=== PATIENT | male | born 1975 | race Caucasian/White ===

== ENCOUNTER 2017-09-10 20:49 | Emergency (ER) | payer SELFPAY ==
[~2017-09-10] VITALS: Ht 172.7 cm; Wt 90.7 kg
[~2017-09-10 20:49] MED LIST: AMLO5; CEPH500 PO; CLON.1TP; CLON.3; Coumadin4 MG PO; Coumadin5 MG PO; ENAL2.5; HYDACE5 PO; Keflex500 MG PO; MYCO250; MYCO250 PO; Norco 5-325 Ta1 EACH PO; PRED5; PROGRAF PO; PROM25 PO; TACR1; WARF1 PO
== END 2017-09-10 22:55 | disposition home or self-care (01) ==
LOC: ER 20:49
DX: R07.89 Other chest pain (principal); F17.200 Nicotine dependence, unspecified, uncomplicated; Z88.0 Allergy status to penicillin
CPT/HCPCS: 71046; 93005; 93010; 99283

== ENCOUNTER 2017-09-19 23:27 | Emergency (ER) | payer SELFPAY ==
[~2017-09-19] VITALS: Ht 172.7 cm; Wt 90.7 kg
== END 2017-09-20 01:15 | disposition home or self-care (01) ==
LOC: ER 23:27
DX: S82.832A Other fracture of upper and lower end of left fibula, initial encounter for closed fracture (principal); S93.401A Sprain of unspecified ligament of right ankle, initial encounter; W22.8XXA Striking against or struck by other objects, initial encounter; Z88.0 Allergy status to penicillin; Z79.899 Other long term (current) drug therapy; F17.200 Nicotine dependence, unspecified, uncomplicated
CPT/HCPCS: 73610; 99283

== ENCOUNTER 2017-12-14 19:22 | Emergency (ER) | payer SELFPAY ==
[~2017-12-14] VITALS: Ht 172.7 cm; Wt 83.9 kg
== END 2017-12-14 21:14 | disposition home or self-care (01) ==
LOC: ER 19:22
DX: R10.32 Left lower quadrant pain (principal); F17.200 Nicotine dependence, unspecified, uncomplicated; Z88.0 Allergy status to penicillin
CPT/HCPCS: 99282

== ENCOUNTER 2019-03-05 11:47 | Emergency (ER) | payer SELFPAY ==
[~2019-03-05] VITALS: Ht 172.7 cm; Wt 90.7 kg
[2019-03-05 12:25] LABS: BASOPHILS ABSOLUTE AUTO 0.05 K/mm3 (0.00-0.23); BASOPHILS PERCENT AUTO 1 % (0-2); EOSINOPHILS ABSOLUTE AUTO 0.23 K/mm3 (0.00-0.68); EOSINOPHILS PERCENT AUTO 2 % (0-6); Hematocrit 49.8 % (37.0-53.0); Hemoglobin 17.3 g/dL (13.5-17.5); IMMATURE GRAN ABSOLUTE AUTO 0.04 K/mm3 (0.00-0.10); IMMATURE GRAN PERCENT AUTO 0 % (0-1); LYMPHOCYTES ABSOLUTE AUTO 2.19 K/mm3 (0.84-5.20); LYMPHOCYTES PERCENT AUTO 21 % (21-46); MONOCYTES ABSOLUTE AUTO 0.76 K/mm3 (0.16-1.47); MONOCYTES PERCENT AUTO 7 % (4-13); Mean Corpuscular HGB 29.4 pg (26.0-34.0); Mean Corpuscular HGB Conc 34.7 g/dL (31.5-36.5); Mean Corpuscular Volume 85 fL (80-100); Mean Platelet Volume 10.8 fL (9.1-12.4); NEUTROPHILS ABSOLUTE AUTO 7.02 K/mm3 (1.96-9.15); NEUTROPHILS PERCENT AUTO 68 % (41-73); Platelet Count 265 K/mm3 (150-400); RDW Coefficient Variation 12.3 % (11.7-14.2); RDW Standard Deviation 37.4 fL (35.1-46.3); Red Blood Cell Count 5.88 M/mm3 (4.30-5.90); White Blood Cell Count 10.29 K/mm3 (4.00-11.30)
[2019-03-05 12:34] LABS: Source, Urine Clean Catch
[2019-03-05 12:38] LABS: Bilirubin, Urine Neg (Neg); Blood, Urine Neg (Neg); Glucose Qualitative, Urine 4+ (Neg); Ketones, Urine 2+ (Neg); Leukocyte Esterase, Urine Neg (Neg); Nitrite, Urine Neg (Neg); Protein, Urine Neg (Neg); Urobilinogen, Urine NORM (Normal)
[2019-03-05 12:45] LABS: Appearance, Urine Clear (Clear); Color, Urine Yellow (P-Yellow)
[2019-03-05 12:49] LABS: Albumin, Blood 3.8 g/dL (3.4-5.0); Albumin/Globulin Ratio 0.8 (0.8-1.8); Beta-hydroxybutyrate 8.9 mg/dL (0.2-2.8); Bilirubin, Total 0.9 mg/dL (0.1-1.0); Bun/Creatinine Ratio 19.6 (12.0-20.0); Calcium, Blood 9.7 mg/dL (8.5-10.1); Creatinine, Blood 1.43 mg/dL (0.60-1.20); Globulin, Blood 4.7 g/dL (2.2-4.0); Potassium, Blood 4.4 mmol/L (3.5-5.5); Total Protein, Blood 8.5 g/dL (6.4-8.2)
[2019-03-05] MEDS ORDERED: METF500 PO (15:11)
== END 2019-03-05 15:59 | disposition home or self-care (01) ==
LOC: ER 11:47
PROVIDERS: Emergency Medicine
DX: E11.65 Type 2 diabetes mellitus with hyperglycemia (principal); Z88.0 Allergy status to penicillin; Z87.891 Personal history of nicotine dependence
CPT/HCPCS: 36415; 80053; 81003; 82010; 82947; 83036; 85025; 96360; 99283-25; J7030

== ENCOUNTER 2023-02-16 20:15 | Emergency (ER) | payer OTHER ==
[~2023-02-16] VITALS: Ht 172.7 cm; Wt 81.7 kg
[~2023-02-16 20:15] MED LIST changes: +METF500 PO
[2023-02-16 20:42] LABS: Base Excess Venous 1.1 mmol/L; Bicarbonate Venous 24.1 mmol/L (24.0-30.0); PCO2 Venous 43.8 mmHg (38-42); pH Blood Venous 7.38 (7.34-7.37)
[2023-02-16 21:00] LABS: BASOPHILS ABSOLUTE AUTO 0.06 K/mm3 (0.00-0.23); BASOPHILS PERCENT AUTO 1 % (0-2); EOSINOPHILS ABSOLUTE AUTO 0.25 K/mm3 (0.00-0.68); EOSINOPHILS PERCENT AUTO 2 % (0-6); Hematocrit 46.1 % (37.0-53.0); IMMATURE GRAN ABSOLUTE AUTO 0.05 K/mm3 (0.00-0.10); IMMATURE GRAN PERCENT AUTO 1 % (0-1); LYMPHOCYTES ABSOLUTE AUTO 2.51 K/mm3 (0.84-5.20); LYMPHOCYTES PERCENT AUTO 24 % (21-46); MONOCYTES ABSOLUTE AUTO 0.82 K/mm3 (0.16-1.47); MONOCYTES PERCENT AUTO 8 % (4-13); Mean Corpuscular HGB 28.4 pg (26.0-34.0); Mean Corpuscular HGB Conc 34.7 g/dL (31.5-36.5); Mean Corpuscular Volume 82 fL (80-100); Mean Platelet Volume 10.7 fL (9.1-12.4); NEUTROPHILS ABSOLUTE AUTO 6.63 K/mm3 (1.96-9.15); NEUTROPHILS PERCENT AUTO 64 % (41-73); Platelet Count 311 K/mm3 (150-400); RDW Coefficient Variation 12.8 % (11.7-14.2); RDW Standard Deviation 37.6 fL (35.1-46.3); Red Blood Cell Count 5.64 M/mm3 (4.30-5.90); White Blood Cell Count 10.32 K/mm3 (4.00-11.30)
[2023-02-16 21:03] LABS: Source, Urine Clean Catch
[2023-02-16 21:10] LABS: Appearance, Urine Clear (Clear); Bilirubin, Urine Neg (Neg); Blood, Urine Neg (Neg); Color, Urine Yellow (P-Yellow); Glucose Qualitative, Urine 4+ (Neg); Ketones, Urine Neg (Neg); Leukocyte Esterase, Urine Neg (Neg); Nitrite, Urine Neg (Neg); Protein, Urine Neg (Neg); Specific Gravity, Urine 1.015 (1.003-1.022); Urobilinogen, Urine NORM (Normal)
[2023-02-16 21:17] LABS: Albumin, Blood 3.9 g/dL (3.4-5.0); Albumin/Globulin Ratio 0.9 (0.8-1.8); Beta-hydroxybutyrate 2.4 mg/dL (0.2-2.8); Bilirubin, Total 0.6 mg/dL (0.1-1.0); Calcium, Blood 9.7 mg/dL (8.5-10.1); Creatinine, Blood 1.19 mg/dL (0.60-1.20); Globulin, Blood 4.5 g/dL (2.2-4.0); Potassium, Blood 4.2 mmol/L (3.5-5.5); Total Protein, Blood 8.4 g/dL (6.4-8.2)
[2023-02-17 01:15] VITALS: BP 126/99
== END 2023-02-17 01:31 | disposition home or self-care (01) ==
LOC: ER 20:15
PROVIDERS: Student in an Organized Health Care Education/Training Program
DX: E11.65 Type 2 diabetes mellitus with hyperglycemia (principal); Z88.0 Allergy status to penicillin; Z79.899 Other long term (current) drug therapy; Z79.84 Long term (current) use of oral hypoglycemic drugs; Z87.891 Personal history of nicotine dependence
CPT/HCPCS: 80053; 81003; 82010; 82803; 83690; 85025; 93005; 93010; 96360; 99284-25; J7030

== ENCOUNTER 2024-12-14 04:12 | Observation (INO) | payer OTHER ==
[~2024-12-14] VITALS: Ht 172.7 cm; Wt 80.0 kg
[2024-12-14 04:46] LABS: Source, Urine Clean Catch
[2024-12-14 04:46] LABS: pH Blood Venous 7.32 (7.34-7.37)
[2024-12-14 04:52] LABS: BASOPHILS ABSOLUTE AUTO 0.01 K/mm3 (0.00-0.23); BASOPHILS PERCENT AUTO 0 % (0-2); EOSINOPHILS ABSOLUTE AUTO 0.01 K/mm3 (0.00-0.68); EOSINOPHILS PERCENT AUTO 0 % (0-6); Hematocrit 43.4 % (37.0-53.0); Hemoglobin 15.0 g/dL (13.5-17.5); IMMATURE GRAN ABSOLUTE AUTO 0.03 K/mm3 (0.00-0.10); IMMATURE GRAN PERCENT AUTO 0 % (0-1); LYMPHOCYTES ABSOLUTE AUTO 0.98 K/mm3 (0.84-5.20); LYMPHOCYTES PERCENT AUTO 10 % (21-46); MONOCYTES ABSOLUTE AUTO 0.18 K/mm3 (0.16-1.47); MONOCYTES PERCENT AUTO 2 % (4-13); Mean Corpuscular HGB Conc 34.6 g/dL (31.5-36.5); Mean Corpuscular Volume 84 fL (80-100); NEUTROPHILS ABSOLUTE AUTO 8.85 K/mm3 (1.96-9.15); NEUTROPHILS PERCENT AUTO 88 % (41-73); NRBC ABSOLUTE 0.00 K/mm3 (0.00-0.02); NRBC Auto 0.0 /100 WBC (0.0-0.2); Platelet Count 314 K/mm3 (150-400); RDW Coefficient Variation 12.9 % (11.7-14.2); RDW Standard Deviation 38.9 fL (35.1-46.3)
[2024-12-14 04:55] LABS: Bilirubin, Urine Neg (Neg); Glucose Qualitative, Urine 4+ (Neg); Ketones, Urine 1+ (Neg); Leukocyte Esterase, Urine Neg (Neg); Protein, Urine Neg (Neg); Specific Gravity, Urine 1.010 (1.003-1.022); Urobilinogen, Urine NORM (Normal)
[2024-12-14 05:00] LABS: Color, Urine Pale Yellow (P-Yellow)
[2024-12-14] MEDS ORDERED: NS 1,000 ML IV SCH ×4 (05:10→14:35)
[2024-12-14 05:41] LABS: Alanine Aminotransfer (ALT/SGP 55.0 U/L (12-78); Albumin, Blood 4.2 g/dL (3.4-5.0); Albumin/Globulin Ratio 1.0 (0.8-1.8); Anion Gap 10.0 mmol/L (3-11); Aspartate Aminotrans (AST/SGOT 17.0 U/L (12-37); Bilirubin, Total 0.7 mg/dL (0.1-1.0); Blood Urea Nitrogen 41.0 mg/dL (8-24); CO2, Blood 24.0 mmol/L (21-32); Calcium, Blood 9.4 mg/dL (8.5-10.1); Chloride, Blood 99.0 mmol/L (98-108); Creatinine, Blood 1.3 mg/dL (0.60-1.20); Globulin, Blood 4.1 g/dL (2.2-4.0); Glucose, Blood 624.0 mg/dL (70-99); Potassium, Blood 6.0 mmol/L (3.5-5.5); Sodium, Blood 127.0 mmol/L (136-145); Total Protein, Blood 8.3 g/dL (6.4-8.2)
[2024-12-14 07:30] LABS: Calcium, Ionized (POC) 1.28 mmol/L (1.10-1.46); Chloride (POC) 101 mmol/L (98-108); Creatinine (POC) 1.4 mg/dL (0.8-1.3); Glucose (ISTAT POC) 534 mg/dL (70-99); Hematocrit (POC) 42.0 % (41.0-53.0); Hemoglobin (POC) 14.3 g/dL (13.5-17.5); Potassium (POC) 6.7 mmol/L (3.5-5.5); Sodium (POC) 131 mmol/L (135-148); Total CO2 (POC) 22 mmol/L (21-32)
[2024-12-14] MEDS ORDERED: Insulin Regular 100 Unit/ML 1ML Dose IV ONE (07:30)
[2024-12-14] MEDS ORDERED: Calcium Chloride 10% 1,000 MG in NS 50 ML IV ONE (08:30)
[2024-12-14 08:52] LABS: Anion Gap 9 mmol/L (3-11); Blood Urea Nitrogen 35 mg/dL (8-24); CO2, Blood 24 mmol/L (21-32); Calcium, Blood 7.9 mg/dL (8.5-10.1); Chloride, Blood 105 mmol/L (98-108); Creatinine, Blood 1.19 mg/dL (0.60-1.20); Glucose, Blood 442 mg/dL (70-99); Potassium, Blood 4.6 mmol/L (3.5-5.5); Sodium, Blood 133 mmol/L (136-145)
[2024-12-14] MEDS ORDERED: NS 1,000 ML IV ONE (09:20)
[2024-12-14] MEDS ORDERED: FLU VACC TS2025-26(6MOS UP)/PF 45 MCG/0.5 ML SYRINGE IM SCH (11:00)
[2024-12-14] MEDS ORDERED: Insulin Human Lispro 100 Units/ML 3ML Syringe SC SCH (12:00)
[2024-12-14 14:04] VITALS: BP 129/89
[2024-12-14] MEDS ORDERED: METF500 PO (14:34)
[2024-12-14] MEDS ORDERED: Cyclobenzaprine5 MG PO (15:13)
[2024-12-14 15:37] VITALS: BP 141/97
[2024-12-14 16:27] LABS: Anion Gap 9.0 mmol/L (3-11); Blood Urea Nitrogen 28.0 mg/dL (8-24); CO2, Blood 27.0 mmol/L (21-32); Calcium, Blood 9.2 mg/dL (8.5-10.1); Chloride, Blood 104.0 mmol/L (98-108); Creatinine, Blood 1.03 mg/dL (0.60-1.20); Glucose, Blood 259.0 mg/dL (70-99); Potassium, Blood 4.2 mmol/L (3.5-5.5); Sodium, Blood 136.0 mmol/L (136-145)
--- NOTE | 2024-12-14 18:48 | NUR ---
ADMIT NOTE PT BROUGHT UP FROM ER IN [facility],A BLE TO TRANSFER INDEPENDENTLY TO BED. MED REC COMPLETED. Q4 HR BLOOD SUGAR CHECKS WITH SLIDING SCALE INSULIN MANAGEMENT. WILL HAVE LONG ACTING INSULIN COVERAGE TONIGHT. PT DOES NOT TAKE INSULIN AT HOME, USUALLY METFORMIN. DR. LOVE RECOMMENDED PT GO HOME WITH INSULIN BUT HE STATES HE DOES NOT WANT TO TAKE INSULIN AT HOME. OK WITH INSULIN MANAGEMENT IN HOSPITAL. PT WAS INITIALLY PRESCRIBED PREDNISONE AND A Z-PACK FOR A DRY, NONPRODUCTIVE COUGH THAT WOULD NOT GO AWAY, FINISHED Z-PACK, BUT PT DOES NOT CHECK HIS BLOOD SUGAR AT HOME EVERY DAY THE LAST TWO DAYS HIS SUGAR WAS HYPERGLYCEMIC. ADVISED TO DC PREDNISONE. PT CAME TO ER AND GLUCOSE INITIALLY GREATER THAN 500. PT A/OX4. ROOM AIR. INDEPENDENT. ABLE TO MAKE NEEDS KNOWN. CALL LIGHT WITHIN REACH. NONSKID SOCKS ON.
[2024-12-14 20:08] VITALS: BP 122/90
[2024-12-14] MEDS ORDERED: Insulin Glargine-Yfgn 100 Unit/mL 3 ML SYR SC SCH (21:00)
[2024-12-14] MEDS ORDERED: Insulin Glargine 100 Unit/ML 3 ML SYR SC SCH (21:00)
[2024-12-15 04:07] VITALS: BP 104/68
--- NOTE | 2024-12-15 04:47 | NUR ---
SHIFT SUMMARY ADMITTED FOR HYPERGLYCEMIA. FULL CODE. IV FLUIDS INFUSING. Q4 CBG'S, MEDIUM SS. A&O X4, INDEPENDENT, ON RA. ADA DIET. HX OF KIDNEY TRANSPLANT, ONLY THE RIGHT KIDNEY REMAINS. NORMALLY ON METFORMIN. HE WAS TAKING STEROIDS OUTPT FOR COUGH. HE IS HOPEFUL FOR DC HOME WITH HIS WHEN STABLE. NO NEW CONCERNS.
[2024-12-15 05:23] LABS: Hematocrit 38.1 % (37.0-53.0); Hemoglobin 13.0 g/dL (13.5-17.5); Mean Corpuscular HGB Conc 34.1 g/dL (31.5-36.5); Mean Corpuscular Volume 84 fL (80-100); NRBC ABSOLUTE 0.00 K/mm3 (0.00-0.02); NRBC Auto 0.0 /100 WBC (0.0-0.2); Platelet Count 257 K/mm3 (150-400); RDW Coefficient Variation 13.0 % (11.7-14.2); RDW Standard Deviation 39.3 fL (35.1-46.3)
[2024-12-15 06:24] LABS: Anion Gap 10.0 mmol/L (3-11); Blood Urea Nitrogen 26.0 mg/dL (8-24); CO2, Blood 22.0 mmol/L (21-32); Calcium, Blood 8.3 mg/dL (8.5-10.1); Chloride, Blood 108.0 mmol/L (98-108); Creatinine, Blood 1.08 mg/dL (0.60-1.20); Glucose, Blood 247.0 mg/dL (70-99); Potassium, Blood 3.5 mmol/L (3.5-5.5); Sodium, Blood 136.0 mmol/L (136-145)
[2024-12-15 07:29] VITALS: BP 119/85
[2024-12-15] MEDS ORDERED: Enoxaparin 40 MG/0.4 ML SYR SC SCH (09:00)
[2024-12-15] MEDS ORDERED: TACR1 PO (11:36)
--- NOTE | 2024-12-15 11:54 | NUR ---
DISCHARGE NOTE: A&OX4 PRIOR TO DISCHARGE. PT EDUCATION AND INFORMATION PACKET PROVIDED BEFORE LEAVING. PT DRESSED SELF AND GATHERED BELONGINGS. PT REQUESTED TO WALK OUT OF FACILITY, PROTOTYPER ESCORTED OUT.
[2024-12-15] MEDS ORDERED: MetFORMIN HCl 500 mg PO SCH (17:00)
== END 2024-12-15 11:52 | disposition home or self-care (01) ==
LOC: ER 04:12 → SURS 04:13 → MEDS 13:53 → ENPENDDIS 12-15 11:19 → MEDS 12-15 11:52
PROVIDERS: Student in an Organized Health Care Education/Training Program; ADMIT Internal Medicine
DX: E11.65 Type 2 diabetes mellitus with hyperglycemia (principal); E86.0 Dehydration; E87.1 Hypo-osmolality and hyponatremia; N17.9 Acute kidney failure, unspecified; E87.5 Hyperkalemia; F17.220 Nicotine dependence, chewing tobacco, uncomplicated; Z94.0 Kidney transplant status; Z79.84 Long term (current) use of oral hypoglycemic drugs; Z79.899 Other long term (current) drug therapy; Z88.0 Allergy status to penicillin
CPT/HCPCS: 36415; 80047; 80048; 80053; 81003; 82010; 82803; 82947; 83036; 85014; 85025; 85027; 96361; 96365; 99285-25; A9270; G0378; J1815; J7030